=== PATIENT | female | born 1950 | race Caucasian/White ===

== ENCOUNTER 2016-11-05 14:22 | Emergency (ER) | payer BC, MEDICARE ==
[~2016-11-05] VITALS: Ht 167.6 cm; Wt 187.0 kg
[~2016-11-05 14:22] MED LIST: AMARYL2 M1 PO; AMARYL2 MG PO; ATIVAN0.5 M1 PO; ATIVAN0.5 MG; ATIVAN0.5 MG PO; AUGMENTIN875 MG PO; CELEXA40 M2 PO; CELEXA40 MG PO; COUMADIN2.5 M1 PO; COUMADIN2.5 MG; COUMADIN5 M1 PO; COUMADIN5 M2 PO; COUMADIN5 MG; COUMADIN5 MG PO; COZAAR; CULTURELLE1 EAC1 PO; FLAGYL500 M1 PO; GLUCOPHAGE500 MG; GLUCOPHAGE500 MG PO; HYDROCODON-ACE1 EA16 PO; HYDROCODONE; HYDROCODONE/APA1 CAP PO; LASIX40 M1 PO; LEVAQUIN750 M1 PO; LIPITOR; LIPITOR40 M1 PO; LIPITOR40 MG PO; LISINOPRIL10 MG PO; LISINOPRIL20 M1 PO; LOSARTAN POTASS50 M1 PO; NAFCILLIN SODIUM2 GM IV; NORCO 10/325 TA1 TAB PO; NORCO 5-325 TA1 EACH PO; POTASSIUM CHLO20 ME3 PO; SILVER SULFADI400 GM TOP; TOPAMAX100 M2 PO; TOPAMAX25 M2 PO; TOPIRAMATE25 MG PO; TOPROL XL100 M1 PO; TOPROL XL100 MG; TOPROL XL100 MG PO; TRAMADOL HCL50 MG PO; ULTRAM50 M1 PO; ULTRAM50 MG; WELLBUTRIN XL300 M3 PO; WELLBUTRIN XL300 MG PO; [UNRECOGNIZED DRUG - REMARK]
[2016-11-05 16:42] LABS: PROTHROMBIN TIME 24.2 SECONDS (9.0-13.6)
== END 2016-11-05 18:36 ==
LOC: EDMED 14:22
PROVIDERS: Emergency Medicine
PROC: 05HF33Z Insertion of Infusion Device into Left Cephalic Vein, Percutaneous Approach (ICD-10-PCS; principal; 2016-11-05)
DX: T82.868A Thrombosis due to vascular prosthetic devices, implants and grafts, initial encounter (principal); E11.9 Type 2 diabetes mellitus without complications; I10 Essential (primary) hypertension; Z79.84 Long term (current) use of oral hypoglycemic drugs; Z79.01 Long term (current) use of anticoagulants; Z79.899 Other long term (current) drug therapy
CPT/HCPCS: C1751